=== PATIENT | male | born 1995 | race Hispanic/Latino ===

== ENCOUNTER 2025-01-17 08:58 | Emergency (ER) | payer SELFPAY ==
--- NOTE | 2025-01-17 09:09 | ED_ITS ---
HPI - Eye Problem General Chief complaint: Eye Problems Stated complaint: Left Eye Irritation Time Seen by Provider: 01/17/25 09:00 Source: patient and hospital cleaner Mode of arrival: ambulatory Limitations: no limitations History of Present Illness HPI Narrative: Emre is a 29-year-old male patient presenting to the clinic today with complaints of left eye discomfort/body sensation/redness. He reports he thinks he got a piece of wood in his eye 3 days ago. States the redness and discomfort started last night. Feels as though there may be something in his eye around the left upper lateral eyelid. Rates the discomfort at 3/10. Denies any visual changes. Eye is watering when he shot this eye and is burning when he keeps his eye open. Has not taken anything or done any treatment for his eye. Denies bibi tosensitivity. Related Data Allergies Allergy/AdvReac Type Severity Reaction Status Date / Time No Known Allergies Allergy Verified 01/17/25 09:16 Review of Systems Review of Systems: Pertinent positives per HPI. Patient denies any fever, chills, rash, headache, visual changes, dizziness, cough, runny nose, sore throat, shortness of breath, chest pain, palpitations, nausea, vomiting, diarrhea, constipation, abdominal pain, or any urinary issues. PMFSH Comments At the time of my signature, I reviewed and agree with the nursing past medical, surgical, social, and family history. There is no relevant family history pertinent to the patient complaint. Exam Narrative: General: Well-developed, well nourished, in no apparent distress Head: Normocephalic, atraumatic Eyes: Pupils equally round and reactive to light bilaterally, EOM intact, right sclera and conjunctive clear, no discharge, lids normal, left sclera and conjunctiva injected with watery discharge, Wood's lamp exam performed and no sign of corneal abrasion or visualized foreign body in the left eye. Ears: TMs intact and clear, ear canals clear, no drainage, grossly hearing normal. Nose: Nares patent, no discharge, no inflammation, no sinus tenderness. Mouth: Oropharynx without lesions or masses, good dentition, MMM. Neck: Supple, trachea midline, no enlargement of anterior or posterior cervical nodes, no thyroid masses or goiter palpable. Cardio: Regular rate and rhythm, s1 and s2 normal, no murmur appreciated. Resp: Clear to auscultation bilaterally anteriorly and posteriorly, no rhonchi, rales, wheezing or rubs Course Course Emergency Course: Portions of this record may have been created with voice recognition software. Level of Care: Express Care Visit Vital Signs Vital signs: Vital Signs Temperature 36.4 C 01/17/25 09:12 Pulse Rate 74 01/17/25 09:12 Respiratory Rate 14 01/17/25 09:12 Blood Pressure 134/75 01/17/25 09:12 Pulse Oximetry 100 01/17/25 09:12 Oxygen Delivery Room Air 01/17/25 09:12 Temperature 36.4 C 01/17/25 09:12 Pulse Rate 74 01/17/25 09:12 Respiratory Rate 14 01/17/25 09:12 Blood Pressure 134/75 01/17/25 09:12 Pulse Oximetry 100 01/17/25 09:12 Oxygen Delivery Room Air 01/17/25 09:12 Vital signs reviewed Procedures Other Procedure Procedure 1: Other Procedure: Two drops topical tetracaine anesthetic was instilled with good anesthesia. Fluorescein stain of the left eye was performed without uptake of dye. No epithelial defect was noted. NO FB, ulcer or dendritic lesions. Upper lid was everted and no FB or lesions were noted. NO Katy sign. Normal saline irrigation eye solution was performed and the patient tolerated the procedure well, no adverse reaction or complications. MDM - Eye Problem MDM Narrative Medical decision making narrative: At the time of visit patient is resting comfortably on the exam table. Patient appears to be nontoxic. Nate-educational sign language interpreter used throughout the course of patient visit. Procedures: Wood's lamp exam was performed-no obvious sign of foreign body. No sign of corneal abrasion. No Katy sign. Plan: I suspect patient has eye irritation/eye discomfort. Sclera and conjunctive injected. No purulent discharge. We will send in prescription for tobramycin eyedrops to cover for secondary infection. Recommend using artificial tears as needed. Recommend close follow-up with PCP/eye doctor if symptoms persist in 3-5 days or going to the emergency room if symptoms worsen. Supportive measures were discussed with the patient and they voiced understanding discharge instructions and agrees to treatment plan. Return precautions reviewed Differential Diagnosis Differential diagnosis: Likely corneal abrasion, conjunctivitis, acute iritis, hyphema, periorbital cellulitis, subconjunctival hemorrhage, glaucoma, corneal ulcer, ruptured globe and other (Foreign body retained) Discharge Plan Discharge Clinical Impression: Irritation of left eye, Foreign body sensation, left eye Patient Disposition: Home Condition: Stable Instructions: Antibiotic Form, Eye Pain (ED) Additional Instructions: Se realiz? un examen con alayna?suyapa Herr y no se observaron signos de cuerpo extra?o ni abrasi?n corneal en el examen de dayana. Practique buenas t?cnicas de lavado de thelma. Evite tocarse los ojos. Aplique gotas oft?lmicas seg?n lo prescrito (tobramicina). Puede usar un pa?o h?medo y tibio para eliminar la secreci?n ocular. Puede usar compresas fr?as para aliviar el ardor o las molestias. Si los ojos est?n pegados, no los glenna forzosamente. Use un pa?o h?medo y tibio para aflojar la pega y limpiar la suciedad del unruly. Puede suri Tylenol/Motrin seg?n sea necesario para el dolor o la fiebre. Puede suri Benadryl seg?n sea necesario para la picaz?n. Consulte con polk m?dico de cabecera u oftalm?logo en 3 a 5 d?as si los s?ntomas persisten o antes si empeoran. Acuda a urgencias si presenta fiebre que no se controla con Tylenol o Motrin, p?rdida de visi?n, dolor ocular, aumento de la inflamaci?n ocular, cambios visuales, dolor de rohan, confusi?n, letargo, debilidad, dolor en el pecho o dificultad para respirar. Wood's lamp exam was performed and there was no sign of foreign body or corneal abrasion on exam today. Practice good hand washing techniques Avoid touching eyes Instill eyedrops as prescribed-tobramycin May use warm moist washcloth to help remove eye discharge May use cool compress to help alleviate burning/discomfort If eyes are matted shut-do not pry eyes open-use a warm moist cloth to loosen matting and wipe matter away from eye May take Tylenol/Motrin as needed for pain or fever May take Benadryl as needed for itching Follow-up with your PCP or eye doctor in 3-5 days if symptoms persist or sooner if they worsen Go to the emergency room if you develop any fever that is not controlled by Tylenol or Motrin, loss of vision, eye pain, increase eye swelling,visual changes, headache, confusion, lethargy, weakness, chest pain, or shortness of breath. Patient Language: [place] Prescriptions: New tobramycin 0.3 % drops 1 drp LEFT EYE Q4H 7 Days Qty: 5 0RF Follow-up/Referrals: PHYSICIAN,SUPERVISOR PAPER TESTING [Primary Care Provider] - Time of Disposition: 09:32 Quality NIHSS Nursing Documentation ED NIHSS nursing documentation: reviewed/agree
[2025-01-17 09:12] VITALS: BP 134/75; PULSE 74; RESP 14; TEMP 36.4; O2SAT 100
[2025-01-17] MEDS: TETRACAINE HCL 0.5% OPHTH SOLN 4 ML BTL LEFT EYE (09:25)
[2025-01-17] MEDS: FLUORESCEIN SOD 1 MG/STRIP LEFT EYE (09:25)
[2025-01-17] MEDS: DACRIOSE EYE IRRIGATION 118 ML BOTTLE LEFT EYE (09:25)
== END 2025-01-17 09:47 | disposition home or self-care (01) ==
PROVIDERS: Emergency Provider Nurse Practitioner Family
DX: H57.12 Ocular pain, left eye (principal); H57.8A2 Foreign body sensation, left eye
CPT/HCPCS: 99203; A9270; G0463